=== PATIENT | female | born 1980 | race American Indian/Alaskan Native ===

== ENCOUNTER 2018-09-25 14:08 | Emergency (ER) | payer OTHER ==
[2018-09-25 14:30] VITALS: BP 157/100
--- NOTE | 2018-09-25 14:33 | Emergency Department Report ---
Chief Complaint: Medical Clearance Stated Complaint: HBP ELEVATED/FEELING ILL Time Seen by Provider: 09/25/18 14:28 - HPI History of Present Illness: This is a 38 y.o. female that presents to ED for nausea and unusual feeling for 1 week. Patient states in the past she felt like this and it was her blood pressure. - Exam Vital Signs: Vital Signs 09/25/18 14:28 Temperature 98.1 F Pulse Rate 78 Respiratory 16 Rate Blood Pressure 157/100 O2 Sat by Pulse 100 Oximetry MSE screening note: Focused history and physical exam performed. Due to findings the following was ordered: urine hcg fast track for further evaluation. ED Disposition for MSE Condition: Stable
[2018-09-25 15:28] LABS: HCG Qualitative,Urine Negative (Negative)
--- NOTE | 2018-09-25 16:15 | Emergency Department Report ---
ED General Adult HPI - General Chief complaint: Medical Clearance Stated complaint: HBP ELEVATED/FEELING ILL Time Seen by Provider: 09/25/18 14:28 Source: patient Mode of arrival: Ambulatory Limitations: No Limitations - History of Present Illness Initial comments: Patient is a 38-year-old [place] female states that for the last week she's just been feeling "off". Patient states she's had some very mild dizziness occasional nausea and occasional vomiting fatigue. The patient denies any fevers chills cough cold congestion diarrhea or abdominal pain. Patient states he has had elevated blood pressure in the past but has not been prescribed medications. Regarding the patient's nausea the patient states that occasionally she does have some epigastric discomfort but this is random. She states it is not associated with eating a lot of flat. - Related Data Previous Rx's Medication Instructions Recorded Last Taken Type Amlodipine Besylate [Norvasc] 5 mg PO DAILY #30 tablet 09/25/18 Unknown Rx Ondansetron [Zofran Odt] 4 mg PO Q8HR PRN #10 tab.rapdis 09/25/18 Unknown Rx Allergies Allergy/AdvReac Type Severity Reaction Status Date / Time No Known Allergies Allergy Unverified 09/25/18 14:19 ED Review of Systems ROS: Stated complaint: HBP ELEVATED/FEELING ILL Other details as noted in HPI Comment: All other systems reviewed and negative ED Past Medical Hx - Past Medical History Previous Medical History?: Yes Hx Hypertension: Yes (Borderline due to meds per pt) - Surgical History Past Surgical History?: Yes Additional Surgical History: - Social History Smoking Status: Never Smoker Substance Use Type: None - Medications Home Medications: Home Medications Medication Instructions Recorded Confirmed Last Taken Type Amlodipine Besylate [Norvasc] 5 mg PO DAILY #30 tablet 09/25/18 Unknown Rx Ondansetron [Zofran Odt] 4 mg PO Q8HR PRN #10 tab.rapdis 09/25/18 Unknown Rx ED Physical Exam - General Limitations: No Limitations General appearance: alert, in no apparent distress - Head Head exam: Present: atraumatic, normocephalic - Eye Eye exam: Present: normal appearance - ENT ENT exam: Present: normal exam, mucous membranes moist - Neck Neck exam: Present: normal inspection - Respiratory Respiratory exam: Present: normal lung sounds bilaterally. Absent: respiratory distress, wheezes, rales, rhonchi - Cardiovascular Cardiovascular Exam: Present: regular rate, normal rhythm, normal heart sounds. Absent: systolic murmur, diastolic murmur, rubs, gallop - GI/Abdominal GI/Abdominal exam: Present: soft, normal bowel sounds. Absent: distended, tenderness, guarding, rebound, rigid - Extremities Exam Extremities exam: Present: normal inspection - Back Exam Back exam: Present: normal inspection - Neurological Exam Neurological exam: Present: alert, oriented X3 - Psychiatric Psychiatric exam: Present: normal affect, normal mood - Skin Skin exam: Present: warm, dry, intact, normal color. Absent: rash ED Course Vital Signs 09/25/18 14:28 Temperature 98.1 F Pulse Rate 78 Respiratory 16 Rate Blood Pressure 157/100 O2 Sat by Pulse 100 Oximetry ED Medical Decision Making - Medical Decision Making Patient blood pressure is slightly elevated. Patient also says her blood pressure was concerned she may be her test is negative. Patient will be started on blood pressure meds and will be given primary care follow-up. Patient has no signs and symptoms of any end organ damage at this time. Critical care attestation.: If time is entered above; I have spent that time in minutes in the direct care of this critically ill patient, excluding procedure time. ED Disposition Clinical Impression: Hypertensive urgency Disposition: DC-01 TO HOME OR SELFCARE Is pt being admited?: No Does the pt Need Aspirin: No Condition: Stable Instructions: Hypertension (ED) Referrals: CROW BOND MD [Staff Physician] - 7-10 days Time of Disposition: 16:14
== END 2018-09-25 16:24 | disposition home or self-care (01) ==
LOC: ED 14:08
DX: I16.0 Hypertensive urgency (principal)
CPT/HCPCS: 81025; 99283